=== PATIENT | male | born 1960 | race Caucasian/White ===

== ENCOUNTER 2016-11-09 15:11 | Inpatient (IN) | payer OTHER ==
[2016-11-09] MEDS ORDERED: NITROGLYCERIN SL TABS 0.4 MG TAB SUBLINGUAL PRN (15:15)
[2016-11-09] MEDS ORDERED: ASPIRIN 81 MG CHEW PO STA (15:25)
[2016-11-09] MEDS ORDERED: SODIUM CHLORIDE 0.9% 1,000 ML IV STA ×2 (15:25)
[2016-11-09] MEDS ORDERED: PANTOPRAZOLE 40 MG/10 ML VIAL IVP STA (15:28)
[2016-11-09] MEDS ORDERED: ONDANSETRON 4 MG/2 ML VIAL IVP PRN (15:28)
[2016-11-09] MEDS ORDERED: ONDANSETRON 4 MG/2 ML VIAL IVP STA (15:28)
--- NOTE | 2016-11-09 15:29 | ED ---
General Adult HPI - General Stated complaint: GI Bleed Time Seen by Provider: 11/09/16 15:15 Source: RN notes reviewed, old records reviewed - History of Present Illness Initial comments: This is a 56-year-old male who is excepted in transfer for evaluation of GI bleed weakness occasional shortness of breath. Patient self still complaining of abdominal pain and cramping. Patient does admit to positive fevers. Denies any nausea or vomiting at this time. - Related Data Previous Rx's Medication Instructions Recorded Ciprofloxacin HCl [Cipro] 500 mg PO Q12HR #14 tablet 11/11/16 metroNIDAZOLE [Flagyl] 500 mg PO TID #21 tab 11/11/16 Allergies Allergy/AdvReac Type Severity Reaction Status Date / Time No Known Allergies Allergy Verified 11/09/16 15:36 Review of Systems ROS Statement: Those systems with pertinent positive or pertinent negative responses have been documented in the HPI. ROS Other: All systems not noted in ROS Statement are negative. General Exam General appearance: alert, in no apparent distress Head exam: Present: atraumatic, normocephalic, normal inspection Eye exam: Present: normal appearance, PERRL, EOMI. Absent: scleral icterus, conjunctival injection, periorbital swelling ENT exam: Present: normal exam, mucous membranes moist Neck exam: Present: normal inspection. Absent: tenderness, meningismus, lymphadenopathy Respiratory exam: Present: normal lung sounds bilaterally. Absent: respiratory distress, wheezes, rales, rhonchi, stridor Cardiovascular Exam: Present: regular rate, normal rhythm, normal heart sounds. Absent: systolic murmur, diastolic murmur, rubs, gallop, clicks GI/Abdominal exam: Present: soft, normal bowel sounds. Absent: distended, tenderness, guarding, rebound, rigid Extremities exam: Present: normal inspection, full ROM, normal capillary refill. Absent: tenderness, pedal edema, joint swelling, calf tenderness Back exam: Present: normal inspection Neurological exam: Present: alert, oriented X3, CN II-XII intact Psychiatric exam: Present: normal affect, normal mood Skin exam: Present: warm, dry, intact, normal color. Absent: rash Course Vital Signs 11/09/16 11/09/16 15:15 16:32 Temperature 100.5 F H 98.5 F Pulse Rate 69 100 Respiratory 18 18 Rate Blood Pressure 128/80 139/82 O2 Sat by Pulse 99 95 Oximetry EKG Findings - EKG Comments: EKG Findings:: EKG shows a sinus rhythm rate of 78, MS 140, QRS 74, QTc 451 Medical Decision Making - Medical Decision Making 56 male except for transfer from outside facility, patient coming a possible intussusception found on CT for GI evaluation as well as surgical evaluation. Patient also has probable ability to go through DTs, will electroplate replace and fluid resuscitated. - Lab Data Result diagrams: 11/11/16 07:53 11/11/16 07:53 Critical Care Time Critical Care Time: Yes Total Critical Care Time: 31 Disposition Clinical Impression: GIB (gastrointestinal bleeding), Alcohol intoxication, Colitis Narrative: Possible Intussusception Disposition: ADMITTED IP TO THIS HOSP Condition: Serious
[2016-11-09 15:43] LABS: Basophils % (A) 1 %; CH 35.1; CHCM 34.7; Eosinophils % (A) 0 %; HCT 43.8 % (39.0-53.0); HDW 2.17; HGB 15.1 gm/dL (13.0-17.5); Luc # (Auto) 0.11; Luc % (Auto) 2; Lymphocytes # (A) 0.9 k/uL (1.0-4.8); Lymphocytes % (A) 15 %; MCHC 34.5 g/dL (31.0-37.0); MCV 101.5 fL (80.0-100.0); Mean Platelet Volume 7.3; Monocytes # (A) 0.4 k/uL (0-1.0); Monocytes % (A) 6 %; Neutrophils # (A) 4.5 k/uL (1.3-7.7); Neutrophils % (A) 76 %; RBC 4.32 m/uL (4.30-5.90); RDW 12.1 % (11.5-15.5)
[2016-11-09 15:51] LABS: ALT 136 U/L (21-72); AST 121 U/L (17-59); Alkaline Phosphatase 71 U/L (38-126); Anion Gap 12 mmol/L; Blood Urea Nitrogen 8 mg/dL (9-20); Calcium 9.2 mg/dL (8.4-10.2); Carbon Dioxide 23 mmol/L (22-30); Chloride 102 mmol/L (98-107); Glucose 90 mg/dL (74-99); Magnesium 1.6 mg/dL (1.6-2.3); Non-African American GFR(MDRD) >60 (>60 ml/min/1.73 sqM); Potassium 4.4 mmol/L (3.5-5.1); Sodium 137 mmol/L (137-145); Total Bilirubin 1.6 mg/dL (0.2-1.3); Total Protein 8.1 g/dL (6.3-8.2)
[2016-11-09 15:57] LABS: INR 1.2 (<1.1); Prothrombin Time 11.5 sec (9.0-12.0)
[2016-11-09 16:00] LABS: Creatine Kinase 176 U/L (55-170)
[2016-11-09 16:13] LABS: Creatine Kinase MB 1.6 ng/mL (0.0-2.4); Troponin I <0.012 ng/mL (0.000-0.034)
[2016-11-09] MEDS ORDERED: LORazepam 2 MG/ML SYRINGE IV PRN ×3 (16:13)
[2016-11-09] MEDS ORDERED: THIAMINE 100 MG/ML 2 ML VIAL IM STA (16:13)
[2016-11-09] MEDS ORDERED: LORazepam 2 MG/ML SYRINGE IV STA (16:13)
[2016-11-09] MEDS ORDERED: THIAMINE 100 MG TAB PO SCH (17:00)
[2016-11-09 17:50] VITALS: BMI 23.6
[2016-11-09] MEDS: DEXTROSE 5%-0.45% NACL 1,000 ML IV SCH (17:50)
--- NOTE | 2016-11-09 18:27 | P.GSCN ---
History of Present Illness Consult date: 11/09/16 Reason for Consult: Rectal bleeding, abdominal pain, possible colitis or intussusception History of present illness: The patient's a 56-year-old man who passed out on the toilet about 2 AM due to abdominal pain. He struck his head. He was able to get up and go to work. He went and had a bowel movement though that was bloody. His pain increased so he went to the emergency department. He had a computed tomography scan performed which showed either a colitis or possible intussusception. He had an episode of similar pain about 2 years ago which spontaneously resolved. He went to the emergency department and was discharged. He denies any blood in the stools or dark tarry stools. No previous nausea vomiting or weight loss. His last colonoscopy was 2012. He evidently had reported colon polyps at that time which were not removed. No family history of GI malignancy or inflammatory bowel disease. No previous history of diverticulitis. He had a normal bowel movement about 2 days ago. No change in bowel habits. No previous abdominal surgeries. Review of Systems All systems: negative - Constitutional Constitutional Comment(s): He is currently hungry. He had some cookies last night Denies chills, Denies fever Past Medical History Past Medical History: COPD, GI Bleed Additional Past Medical History / Comment(s): brain bleed; drinks 6-8 beers/day per patient History of Any Multi-Drug Resistant Organisms: None Reported Past Surgical History: Hernia Repair Additional Past Surgical History / Comment(s): rotator cuff surgery (right), bilateral inguinal hernia repair, right middle and upper lobectomy for emphysema with blebs, hemorrhoid surgery; skin cancer excision- back; vasectomy Past Anesthesia/Blood Transfusion Reactions: No Reported Reaction Past Psychological History: Anxiety Smoking Status: Former smoker Past Alcohol Use History: Daily Additional Past Alcohol Use History / Comment(s): 6-8 beers/day per patient Past Drug Use History: None Reported Medications and Allergies Home Medications Medication Instructions Recorded Confirmed Type No Known Home Medications [No 11/09/16 11/09/16 History Known Home Medications] Allergies Allergy/AdvReac Type Severity Reaction Status Date / Time No Known Allergies Allergy Verified 11/09/16 15:36 Surgical - Exam Osteopathic Statement: *. No significant issues noted on an osteopathic structural exam other than those noted in the History and Physical/Consult. Vital Signs Temp Pulse Resp BP Pulse Ox 100.5 F H 69 18 128/80 99 11/09/16 15:15 11/09/16 15:15 11/09/16 15:15 11/09/16 15:15 11/09/16 15:15 - General well developed, well nourished, no distress - Eyes normal ocular movement - ENT Abrasion left supraorbital region with minimal ecchymosis and some Dermabond present - Neck trachea midline - Respiratory normal expansion, normal respiratory effort, other (Decreased breath sounds right upper lung field) - Abdomen Abdomen: soft, tender (Suprapubic region), no guarding, no rigid, no rebound, distended (Mild tympany to percussion) Hernia: no umbilical Results - Labs 11/09/16 15:20 11/09/16 15:20 Abnormal Lab Results - Last 24 Hours (Table) 11/09/16 11/09/16 11/09/16 Range/Units 15:20 15:20 15:20 MCV 101.5 H (80.0-100.0) fL Lymphocytes # 0.9 L (1.0-4.8) k/uL BUN 8 L (9-20) mg/dL Creatinine 0.61 L (0.66-1.25) mg/dL Total Bilirubin 1.6 H (0.2-1.3) mg/dL AST 121 H (17-59) U/L ALT 136 H (21-72) U/L Total Creatine Kinase 176 H (55-170) U/L Diabetes panel 11/09/16 Range/Units 15:20 Sodium 137 (137-145) mmol/L Potassium 4.4 (3.5-5.1) mmol/L Chloride 102 (98-107) mmol/L Carbon Dioxide 23 (22-30) mmol/L BUN 8 L (9-20) mg/dL Creatinine 0.61 L (0.66-1.25) mg/dL Glucose 90 (74-99) mg/dL Calcium 9.2 (8.4-10.2) mg/dL AST 121 H (17-59) U/L ALT 136 H (21-72) U/L Alkaline Phosphatase 71 (38-126) U/L Total Protein 8.1 (6.3-8.2) g/dL Albumin 4.7 (3.5-5.0) g/dL Calcium panel 11/09/16 Range/Units 15:20 Calcium 9.2 (8.4-10.2) mg/dL Albumin 4.7 (3.5-5.0) g/dL Pituitary panel 11/09/16 Range/Units 15:20 Sodium 137 (137-145) mmol/L Potassium 4.4 (3.5-5.1) mmol/L Chloride 102 (98-107) mmol/L Carbon Dioxide 23 (22-30) mmol/L BUN 8 L (9-20) mg/dL Creatinine 0.61 L (0.66-1.25) mg/dL Glucose 90 (74-99) mg/dL Calcium 9.2 (8.4-10.2) mg/dL Adrenal panel 11/09/16 Range/Units 15:20 Sodium 137 (137-145) mmol/L Potassium 4.4 (3.5-5.1) mmol/L Chloride 102 (98-107) mmol/L Carbon Dioxide 23 (22-30) mmol/L BUN 8 L (9-20) mg/dL Creatinine 0.61 L (0.66-1.25) mg/dL Glucose 90 (74-99) mg/dL Calcium 9.2 (8.4-10.2) mg/dL Total Bilirubin 1.6 H (0.2-1.3) mg/dL AST 121 H (17-59) U/L ALT 136 H (21-72) U/L Alkaline Phosphatase 71 (38-126) U/L Total Protein 8.1 (6.3-8.2) g/dL Albumin 4.7 (3.5-5.0) g/dL - Imaging CT scan - abdomen: report reviewed (I was not able to retrieve the images from the disc sent from the referring hospital) Assessment and Plan (1) Colitis Status: Acute (2) GIB (gastrointestinal bleeding) Status: Acute (3) Abnormal computed tomography angiography (CTA) of abdomen Status: Acute Plan: The CT report seems fairly vague for intussusception. Intussusception is also extremely uncommon in adults, particularly in that portion of the colon. We'll empirically treat the patient with antibiotics and IV fluids. Monitor the CBC. Have him get a barium enema to further evaluate the sigmoid colon. Obtain report of colonoscopy done in 2013. Of particular interest would be where the polyps were present. (If they were small rectal polyps which appeared hyperplastic they may not have been removed at that time.) Further recommendations to follow
[2016-11-09] MEDS: HYDROmorphone 1 MG/ML 1 ML SYRINGE IVP PRN (20:25)
[2016-11-09] MEDS: metroNIDAZOLE-NS PMX 500 MG in SALINE 1 100ML.BAG IVPB SCH (20:43)
[2016-11-09] MEDS: LEVOFLOXACIN 750MG-D5W PMX 750 MG in DEXTROSE/WATER 1 150ML.BAG IVPB SCH (22:18)
[2016-11-10] MEDS: 1: MVI, ADULT NO.4 WITH VIT K 10 ML, THIAMINE 100 MG, FOLIC ACID 1 MG in SODIUM CHLORIDE IV SCH ×16 (00:15→15:29)
[2016-11-10] MEDS ORDERED: SODIUM CHLORIDE 0.9% 1,000 ML BAG ONE (00:15)
[2016-11-10] MEDS: HYDROmorphone 1 MG/ML 1 ML SYRINGE IVP PRN ×3 (03:27→11:46)
[2016-11-10] MEDS: metroNIDAZOLE-NS PMX 500 MG in SALINE 1 100ML.BAG IVPB SCH ×3 (03:41→15:41)
[2016-11-10] MEDS: PANTOPRAZOLE 40 MG/10 ML VIAL IVP SCH ×2 (07:47→20:55)
--- NOTE | 2016-11-10 07:52 | P.PN ---
Subjective Principal diagnosis: Abdominal pain, rectal bleeding Patient is seen on rounds. He continues to have some intermittent abdominal pain which is controlled with Dilaudid. He may have had one more small bloody bowel movement. Denies fever or chills Objective - Vital Signs Vital signs: Vital Signs Temp 98.7 F 11/10/16 07:00 Pulse 69 11/10/16 07:00 Resp 19 11/10/16 07:00 BP 110/70 11/10/16 07:00 Pulse Ox 97 11/10/16 07:00 Intake & Output 11/09/16 11/10/16 11/10/16 18:59 06:59 18:59 Intake Total 100 Balance 100 Weight 72.5 kg Intake: Oral 100 Other: Voiding Method Toilet Urinal # Voids 1 # Bowel Movements 1 0 - Constitutional General appearance: Present: cooperative, no acute distress - Cardiovascular Rhythm: regular - Gastrointestinal General gastrointestinal: Present: distended (mildly with tympany to percussion) , normal bowel sounds, soft, tenderness (mainly LLQ) - Labs CBC & Chem 7: 11/09/16 15:20 11/09/16 15:20 Labs: Abnormal Lab Results - Last 24 Hours (Table) 11/09/16 11/09/16 11/09/16 Range/Units 15:20 15:20 15:20 MCV 101.5 H (80.0-100.0) fL Lymphocytes # 0.9 L (1.0-4.8) k/uL BUN 8 L (9-20) mg/dL Creatinine 0.61 L (0.66-1.25) mg/dL Total Bilirubin 1.6 H (0.2-1.3) mg/dL AST 121 H (17-59) U/L ALT 136 H (21-72) U/L Total Creatine Kinase 176 H (55-170) U/L Assessment and Plan (1) Colitis Status: Acute (2) GIB (gastrointestinal bleeding) Status: Acute (3) Abnormal computed tomography angiography (CTA) of abdomen Status: Acute Plan: Barium enema has been ordered. We'll check serum results. Continue IV antibiotics. We'll reevaluate him this afternoon. Further recommendations to follow
[2016-11-10 08:05] LABS: CH 34.9; CHCM 33.7; HCT 39.5 % (39.0-53.0); HDW 2.14; HGB 12.9 gm/dL (13.0-17.5); MCHC 32.7 g/dL (31.0-37.0); Macrocytosis Slight; Mean Platelet Volume 7.4; RDW 12.2 % (11.5-15.5); WBC 6.1 k/uL (3.8-10.6)
[2016-11-10 08:16] LABS: ALT 88 U/L (21-72); AST 63 U/L (17-59); Alkaline Phosphatase 48 U/L (38-126); Anion Gap 9 mmol/L; Blood Urea Nitrogen 7 mg/dL (9-20); Calcium 8.5 mg/dL (8.4-10.2); Carbon Dioxide 22 mmol/L (22-30); Chloride 105 mmol/L (98-107); Cholesterol 170 mg/dL (<200); Glucose 124 mg/dL (74-99); HDL Cholesterol 57 mg/dL (40-60); Non-African American GFR(MDRD) >60 (>60 ml/min/1.73 sqM); Potassium 4.1 mmol/L (3.5-5.1); Sodium 136 mmol/L (137-145); Total Bilirubin 1.6 mg/dL (0.2-1.3); Total Protein 6.7 g/dL (6.3-8.2); Triglycerides 125 mg/dL (<150)
[2016-11-10] MEDS ORDERED: ASPIRIN 325 MG TAB PO SCH (09:00)
--- NOTE | 2016-11-10 10:25 | FL ---
EXAMINATION TYPE: FL barium enema DATE OF EXAM: 11/10/2016 9:29 AM COMPARISON: Correlation outside [place] CT 11/09/2016 HISTORY: 56-year-old male history of colonoscopy 3 years ago with some polyps. Patient with rectal bl eeding and syncope. TECHNIQUE: A single contrast contrast barium enema study is performed. FINDINGS: Preservative Filler Machine Operator view of the abdomen shows nonobstructive bowel gas pattern with some residual oral contrast mat erial within the colon. Barium was administered to fill the entire colon. There is relative caliber narrowing and some irregu larity extending from the mid descending colon to the proximal sigmoid. This corresponds to the segme nt of colon showing wall thickening on outside CT. No obstruction, volvulus, intussusception, or evid ent annular lesion. Mucosal assessment is limited due to single contrast technique. IMPRESSION: 1. Single contrast exam. No volvulus, intussusception, or obstruction. 2. Relative caliber narrowing and irregularity extending from the mid descending colon to proximal si gmoid colon. This correlates to the segment of colon showing abnormal wall thickening on outside CT. Finding suggest a nonspecific colitis.
--- NOTE | 2016-11-10 10:58 | HP ---
DATE OF ADMISSION: 11/09/2016 PRESENTING COMPLAINT: Bloody stools. HISTORY OF PRESENTING COMPLAINT: This is a pleasant 56-year-old patient of Dr. Gasca. The patient last night around 2 a.m. felt his abdomen to be cramping and went to the bathroom. The patient actually passed out, bumping his head. The patient was bleeding. Went to work the next day. The abdominal pain never got better and he had more cramping. The patient started having bloody stools. He presented to the local hospital. A CT scan of the abdomen was indeterminate, some suggestion of colitis. Hence, the patient was sent down here. REVIEW OF SYSTEMS: CONSTITUTIONAL: Weak and tired. HEENT: Stitches on the left forehead. RESPIRATORY: None. CARDIOVASCULAR: None. GASTROINTESTINAL: None. GENITOURINARY: None. MUSCULOSKELETAL: None. DERMATOLOGICAL: As above. LYMPHATICS: None. PSYCHIATRY: None. NEUROLOGICAL: No focal symptoms. No tongue biting, no seizure activity. PAST MEDICAL HISTORY: Right upper right and right middle lobectomy for Pseudomonas infection, right rotator cuff surgery, bilateral inguinal hernia repair, hemorrhoid surgery, intracranial bleed. PAST SURGICAL HISTORY: As above. HOME MEDICATIONS: None. SOCIAL HISTORY: . Patient is employed. Drink 6 to 8 beers a day. 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 ALLERGIES: None. On examination, temperature 98.2, pulse 80, respirations 17, blood pressure 102/57, pulse ox 95% on room air. GENERAL: Average appearance, not in distress. HEENT: Eyes pupils equal. Conjunctivae normal. Oral cavity normal. NECK: JVD not raised. Mass not palpable. RESPIRATORY: Effort normal. LUNGS: Clear. CARDIOVASCULAR: First and second sounds normal. No edema. ABDOMEN: Some mild lower abdominal tenderness. No guarding or rigidity. Liver and spleen not palpable. LYMPHATIC: No lymph nodes palpable in the neck or axillae. PSYCHIATRY: Alert and oriented x3. Mood normal. NEUROLOGICAL: Pupils equal. Cranial nerves intact. Power and sensation grossly intact. Left forehead small laceration with [address] INVESTIGATIONS: Blood work from the other hospital showed a magnesia of 1.7. CPK 181, alcohol 43, potassium 4.5, BUN 8, b.i.d. 8, creatinine 0.6. White count 14.3. ASSESSMENT: 1. Possible acute colitis manifesting abdominal cramping, bloody stool. Unlikely but esophageal varices nee3d to be ruled out, though highly doubt that to be present, though still within the differential. 2. Chronic alcohol use. Patient drinks 6 to 8 beers a day. 3. Syncope, probably vasovagal. 4. History of right upper and middle lobe lobectomy for pseudomonas infection. 5. History of intestinal bleed. PLAN: Patient is put on IV Levaquin and Flagyl. Dr. Tafoya was consulted and GI will be consulted. The patient will be put on ice chips. Care was discussed with the patient in detail. Will follow.
[2016-11-10] MEDS: DEXTROSE 5%-0.45% NACL 1,000 ML IV SCH (15:26)
--- NOTE | 2016-11-10 17:23 | P.PN ---
Progress Note - Text The BE report and images were reviewed. The patients overall picture is most consistent with ischemic colitis. There is no sign of intussuception or tumor. I recommend continuing to monitor until sunday afternoon or sunday. Then he could be discharged on low residue diet for 2 weeks along with oral antibiotics. Follow up colonoscopy in about 2 months.
[2016-11-10] MEDS: LEVOFLOXACIN 750MG-D5W PMX 750 MG in DEXTROSE/WATER 1 150ML.BAG IVPB SCH (18:17)
[2016-11-11] MEDS: metroNIDAZOLE-NS PMX 500 MG in SALINE 1 100ML.BAG IVPB SCH ×2 (00:10→08:26)
[2016-11-11] MEDS: 1: MVI, ADULT NO.4 WITH VIT K 10 ML, THIAMINE 100 MG, FOLIC ACID 1 MG in SODIUM CHLORIDE IV SCH ×8 (00:31→10:24)
--- NOTE | 2016-11-11 02:33 | P.CONS ---
History of Present Illness - Reason for Consult Consult date: 11/10/16 Rectal bleeding - History of Present Illness The patient is a 56-year old male who presented with acute onset of abdominal pain that awaked him up from sleep the morning of admission that was followed by rectal bleeding. CT of the abdomen showed non-specific colitis. Was seen by surgery after admission and had BE that did not reveal intussusception or other pathology. Had prior colonoscopies and polyp removal. Review of Systems Constitutional: Denies fever, chills, sweats, weight gain, or loss. HEENT: Negative for migraines, blurred vision or loss, earaches, drainage, tinnitus, oral mucosal lesions, dysphagia, or odynophagia. Cardiac: Negative for chest pain, arrhythmias, or palpitation. Respiratory: Negative for shortness of breath, hemoptysis, cough, or sputum production. History of COPD Gastrointestinal: See HPI for pertinent findings. Genitourinary: Negative for hematuria, urgency, frequency, polyuria, dysuria, or penile discharge. Musculoskeletal: Negative for muscle aches, swelling, arthritis, and arthralgias. Neurologic: Negative for stroke or TIA. Endocrine: No history of DM or thyroid disease Skin: Negative for rash or itching. Psychiatric: Negative history for depression and anxiety Past Medical History Past Medical History: COPD, GI Bleed Additional Past Medical History / Comment(s): brain bleed; drinks 6-8 beers/day per patient History of Any Multi-Drug Resistant Organisms: None Reported Past Surgical History: Hernia Repair Additional Past Surgical History / Comment(s): rotator cuff surgery (right), bilateral inguinal hernia repair, right middle and upper lobectomy for emphysema with blebs, hemorrhoid surgery; skin cancer excision- back; vasectomy Past Anesthesia/Blood Transfusion Reactions: No Reported Reaction Past Psychological History: Anxiety Smoking Status: Former smoker Past Alcohol Use History: Daily Additional Past Alcohol Use History / Comment(s): 6-8 beers/day per patient Past Drug Use History: None Reported Medications and Allergies Home Medications Medication Instructions Recorded Confirmed Type No Known Home Medications [No 11/09/16 11/09/16 History Known Home Medications] Allergies Allergy/AdvReac Type Severity Reaction Status Date / Time No Known Allergies Allergy Verified 11/09/16 15:36 Physical Exam Vitals: Vital Signs Temp Pulse Resp BP Pulse Ox 11/10/16 15:00 98.2 F 81 18 113/66 97 11/10/16 07:00 98.7 F 69 19 110/70 97 11/09/16 22:10 98.2 F 82 17 112/57 95 Intake and Output 11/10/16 11/10/16 11/10/16 06:59 14:59 22:59 Intake Total 100 Balance 100 Intake: Oral 100 Other: # Voids 1 3 # Bowel Movements 0 General appearance: The patient is alert, oriented, in no acute distress. HET: Head is normocephalic and atraumatic. Pupils are equal and reactive. Oropharynx is clear without lesions. Neck: Supple without lymphadenopathy. Trachea midline. Heart: S1 S2. Regular rate and rhythm. Lungs: No diminished in bases bilaterally.. Abdomen: Soft, nontender, nondistended with bowel sounds. No peritoneal signs. No palpable organomegaly or masses. Extremities: Normal skin color and turgor. No cyanosis, rash, ulceration, clubbing, or edema. Radial and pedal pulses are 2/4 bilaterally. Neurological: No focal deficits. Strength and sensation are grossly intact. Results CBC & Chem 7: 11/10/16 07:49 11/10/16 06:00 Labs: Abnormal Lab Results - Last 24 Hours (Table) 11/10/16 11/10/16 Range/Units 06:00 07:49 RBC 3.80 L (4.30-5.90) m/uL Hgb 12.9 L (13.0-17.5) gm/dL MCV 104.0 H (80.0-100.0) fL Plt Count 132 L (150-450) k/uL Sodium 136 L (137-145) mmol/L BUN 7 L (9-20) mg/dL Creatinine 0.65 L (0.66-1.25) mg/dL Glucose 124 H (74-99) mg/dL Total Bilirubin 1.6 H (0.2-1.3) mg/dL AST 63 H (17-59) U/L ALT 88 H (21-72) U/L Assessment and Plan Plan: 56-year old male with piicture of acute colitis likely infectious, ischemic or self limited with improvement with current therapy. Will continue same. No endoscopy planned at this time.
[2016-11-11 07:48] VITALS: BP 123/69; PULSE 68; RESP 20; TEMP 97.9
[2016-11-11 08:05] LABS: Basophils % (A) 0 %; CH 34.7; CHCM 33.9; Eosinophils # (A) 0.1 k/uL (0-0.7); Eosinophils % (A) 1 %; HCT 37.9 % (39.0-53.0); HGB 12.6 gm/dL (13.0-17.5); Luc # (Auto) 0.11; Luc % (Auto) 2; Lymphocytes # (A) 0.9 k/uL (1.0-4.8); Lymphocytes % (A) 13 %; MCH 34.3 pg (25.0-35.0); MCHC 33.3 g/dL (31.0-37.0); MCV 102.9 fL (80.0-100.0); Macrocytosis Slight; Mean Platelet Volume 7.9; Monocytes # (A) 0.4 k/uL (0-1.0); Monocytes % (A) 6 %; Neutrophils # (A) 5.2 k/uL (1.3-7.7); Neutrophils % (A) 78 %; RBC 3.68 m/uL (4.30-5.90); WBC 6.8 k/uL (3.8-10.6); WBC (Perox) 6.99
[2016-11-11 08:25] LABS: ALT 92 U/L (21-72); AST 71 U/L (17-59); Alkaline Phosphatase 57 U/L (38-126); Anion Gap 5 mmol/L; Blood Urea Nitrogen 4 mg/dL (9-20); Calcium 9.1 mg/dL (8.4-10.2); Carbon Dioxide 25 mmol/L (22-30); Chloride 106 mmol/L (98-107); Glucose 114 mg/dL (74-99); Non-African American GFR(MDRD) >60 (>60 ml/min/1.73 sqM); Sodium 136 mmol/L (137-145); Total Bilirubin 1.2 mg/dL (0.2-1.3); Total Protein 6.9 g/dL (6.3-8.2)
[2016-11-11] MEDS: PANTOPRAZOLE 40 MG/10 ML VIAL IVP SCH (08:26)
--- NOTE | 2016-11-11 10:52 | P.PN ---
Progress Note - Text The patient feels well. He denies any abdominal pain. He wishes to go home today. On exam his vital signs are stable. His abdomen soft. Patiently discharged home. He'll follow-up Dr. Tafoya.
--- NOTE | 2016-11-11 13:51 | PN ---
DATE OF SERVICE: 11/10/2016 PRESENTING COMPLAINT: Bloody stools. INTERVAL HISTORY: This patient was seen by me on 11/10/16. He presented with acute colitis. No further bloody stools. Some abdominal pain is still present. Patient is on clear liquids. Lying in bed. No further fever. Review of systems done for constitutional, cardiovascular, GI, pulmonary; relevant findings as above. Current medications are reviewed that include IV Levaquin, Flagyl. On examination, temperature 98.7, pulse 69, respiration 19, blood pressure 110/70, pulse ox 97% on room air. GENERAL APPEARANCE: Lying in bed, not in distress. EYES: Pupils equal. Conjunctivae normal. NECK: JVD not raised. Mass not palpable. RESPIRATORY: Effort normal. Lungs are clear. CARDIOVASCULAR: First and second sounds normal. No edema. ABDOMEN: Decreased abdominal tenderness. No guarding or risks and benefits. Liver and spleen not palpable. PSYCHIATRY: Alert and oriented x3. Mood and affect normal. INVESTIGATIONS: White count 6.1, hemoglobin 12.9. ASSESSMENT: 1. Possible acute colitis manifesting as abdominal cramping, bloody stools. Esophageal varices unlikely, but that is why GI is consulted, to make sure. Patient clinically is actually responding to the current treatment; hence ( ) extremely unlikely. 2. Chronic alcohol use. Patient drinks 6 to 8 beers a day. 3. Syncope, possibly vasovagal. 4. History of right upper and middle lobectomy for pseudomonas infection of the lung. 5. History of intracranial bleed. 6. Superficial laceration on left forehead; stitches in place. PLAN: Continue current medication and treatment plan. Care was discussed with the patient. Advance diet to full liquids this evening. Was on aspirin. GI was consulted; awaiting recommendations.
--- NOTE | 2016-11-12 09:34 | DS ---
DATE OF ADMISSION: 11/09/2016 DATE OF DISCHARGE: 11/11/2016 Patient is a very pleasant gentleman who came in with bloody stools and abdominal pain and found to have acute infectious colitis. Patient is being discharged. Patient is clinically doing well and is not requiring any pain medications. Pain is gone. No more GI bleed. Patient will be discharged on ciprofloxacin and Flagyl for 7 more days. Patient was evaluated by Gastroenterology as well as Surgery. Patient was seen and examined on the day of discharge. Vitals are stable. PHYSICAL EXAMINATION: GENERAL: The patient is alert and oriented x3, not in any acute distress. Well developed, well nourished. HEENT: Pupils are round and equally reacting to light. EOMI. No scleral icterus. No conjunctival pallor. Normocephalic, atraumatic. No pharyngeal erythema. No thyromegaly. CARDIOVASCULAR: S1 and S2 present. No murmurs, rubs, or gallops. PULMONARY: Chest is clear to auscultation, no wheezing or crackles. ABDOMEN: Soft, nontender, nondistended, normoactive bowel sounds. No palpable organomegaly. MUSCULOSKELETAL: No joint swelling or deformity. EXTREMITIES: No cyanosis, clubbing, or pedal edema. NEUROLOGICAL: Gross neurological examination did not reveal any focal deficits. SKIN: No rashes. FINAL DIAGNOSES: 1. Acute infectious colitis, improved symptoms. 2. Chronic alcohol use. Counseling was provided. 3. Patient apparently had a vasovagal syncope. Patient will be discharged today and will be discharged on Cipro, metronidazole for a week. Soft diet for a week. After that patient will need a high fiber diet. Patient will follow with Dr. Mike Gasca in 3 to 7 days. Activity as tolerated. Follow with Dr. Tafoya, Surgery, on an as-needed basis.
--- NOTE | 2016-12-06 22:11 | HP ---
DATE OF ADMISSION: 11/09/2016 ADDENDUM: FAMILY HISTORY: Reviewed; noncontributory to presentation.
== END 2016-11-11 13:42 | disposition home or self-care (01) | DRG 392 ==
LOC: EC 15:11 → SUPCPDRO 15:11 → 4MS4W 15:15
PROVIDERS: ADMIT Hospitalist; ATTEND Hospitalist
DX: A09 Infectious gastroenteritis and colitis, unspecified (principal); J44.9 Chronic obstructive pulmonary disease, unspecified; F41.9 Anxiety disorder, unspecified; R55 Syncope and collapse; Z72.89 Other problems related to lifestyle; Z85.828 Personal history of other malignant neoplasm of skin; Z87.891 Personal history of nicotine dependence
CPT/HCPCS: 36415; 74270; 80053; 80061; 82550; 82553; 83605; 83690; 83735; 84484; 85025; 85027; 85610; 85730; 86850; 86900; 86901; 93005; 96361; 96374; 96375; 99291